=== PATIENT | male | born 2000 | race Caucasian/White ===

== ENCOUNTER → 2020-09-09 | Outpatient (CLI) | payer OTHER ==
--- NOTE | 2020-09-09 12:44 | Diagnostic Imaging Report ---
INDICATION: Left-sided varicose veins. Leg pain. TECHNIQUE: Multiple real-time grayscale images were obtained over the left lower extremity in various projections, bilaterally. Additional duplex Doppler and color Doppler images were also obtained. CORRELATION STUDY: None FINDINGS: Color and grayscale sonographic images demonstrate no intraluminal defect within the visualized portion of the common femoral, superficial femoral and/or popliteal veins to suggest thrombus formation. These vessels demonstrate normal response to compression and augmentation. No soft tissue fluid collection. IMPRESSION: 1. Negative for deep venous thrombosis of the left leg. Dictated by: Dictated on workstation # [id number]
== END ==
LOC: RAD 12:00
PROVIDERS: ATTEND Family Medicine
DX: I83.92 Asymptomatic varicose veins of left lower extremity (principal)

== ENCOUNTER 2020-12-15 10:31 | Emergency (ER) | payer OTHER, MEDICAID ==
[~2020-12-15] VITALS: Ht 193 cm; Wt 71.0 kg
--- NOTE | 2020-12-15 10:51 | ED General ---
General Stated Complaint: CP Source of Information: Patient Exam Limitations: No Limitations History of Present Illness Date Seen by Provider: Dec 15, 2020 Time Seen by Provider: 10:48 Initial Comments To ER with left-sided chest pain intermittently for 4 years. No fevers or chills or cough. The pain occurs a few times a day and last for a few minutes before resolving on its own. It seems to come about with movement and go away randomly. No associated shortness of breath or nausea or sweating. No known cardiac disorders. Extensive psychiatric medication list. Timing/Duration: 1-2 Days Severity: Moderate Associated Systoms: Denies Symptoms Allergies and Home Medications Patient Home Medication List Home Medication List Reviewed: Yes Review of Systems Review of Systems Constitutional: see HPI EENTM: see HPI Respiratory: no symptoms reported Cardiovascular: no symptoms reported Genitourinary: no symptoms reported Musculoskeletal: no symptoms reported Skin: no symptoms reported Psychiatric/Neurological: No Symptoms Reported Hematologic/Lymphatic: No Symptoms Reported Immunological/Allergic: no symptoms reported Physical Exam Vital Signs Vital Signs - First Documented 12/15/20 10:51 Temp 36.0 Pulse 47 Resp 18 B/P (MAP) 129/75 (93) Pulse Ox 100 O2 Delivery Room Air Capillary Refill : Height, Weight, BMI Height: '" Weight: lbs. oz. kg; BMI Method: General Appearance: No Apparent Distress, WD/WN Eyes: Bilateral Eye Normal Inspection, Bilateral Eye PERRL, Bilateral Eye EOMI HEENT: PERRL/EOMI, TMs Normal Neck: Full Range of Motion, Normal Inspection Respiratory: No Accessory Muscle Use, No Respiratory Distress Cardiovascular: Regular Rate, Rhythm, Normal Peripheral Pulses Gastrointestinal: Normal Bowel Sounds, Non Tender, Soft Extremity: Normal Capillary Refill, Normal Inspection Neurologic/Psychiatric: Alert, Oriented x3 Skin: Normal Color, Warm/Dry Progress/Results/Core Measures Suspected Sepsis SIRS Temperature: Pulse: Respiratory Rate: Laboratory Tests 12/15/20 11:06: White Blood Count 2.3L Blood Pressure / Mean: Laboratory Tests 12/15/20 11:06: Platelet Count 134 Results/Orders Lab Results Laboratory Tests Test 12/15/20 11:06 Range/Units White Blood Count 2.3 L 4.3-11.0 10^3/uL Red Blood Count 4.85 4.30-5.52 10^6/uL Hemoglobin 14.5 13.3-17.7 g/dL Hematocrit 45 40-54 % Mean Corpuscular Volume 93 80-99 fL Mean Corpuscular Hemoglobin 30 25-34 pg Mean Corpuscular Hemoglobin Concent 32 32-36 g/dL Red Cell Distribution Width 13.0 10.0-14.5 % Platelet Count 134 130-400 10^3/uL Mean Platelet Volume 13.1 H 9.0-12.2 fL Immature Granulocyte % (Auto) 0 % Neutrophils (%) (Auto) 37 L 42-75 % Lymphocytes (%) (Auto) 48 H 12-44 % Monocytes (%) (Auto) 12 0-12 % Eosinophils (%) (Auto) 1 0-10 % Basophils (%) (Auto) 1 0-10 % Neutrophils # (Auto) 0.9 L 1.8-7.8 10^3/uL Lymphocytes # (Auto) 1.1 1.0-4.0 10^3/uL Monocytes # (Auto) 0.3 0.0-1.0 10^3/uL Eosinophils # (Auto) 0.0 0.0-0.3 10^3/uL Basophils # (Auto) 0.0 0.0-0.1 10^3/uL Immature Granulocyte # (Auto) 0.0 0.0-0.1 10^3/uL Percent Immature Platelet Fraction 13.3 H 0.0-7.6 % Sodium Level 140 135-145 MMOL/L Potassium Level 3.7 3.6-5.0 MMOL/L Chloride Level 108 H 98-107 MMOL/L Glucose Level 97 70-105 MG/DL Calcium Level 9.7 8.5-10.1 MG/DL Corrected Calcium 8.5-10.1 MG/DL Total Protein 8.1 6.4-8.2 GM/DL Albumin 4.8 H 3.2-4.5 GM/DL My Orders Orders - IRASEMA QUESADA APRN Cbc With Automated Diff (12/15/20 10:47) Magnesium (12/15/20 10:47) Chest 1 View, Ap/Pa Only (12/15/20 10:47) Ekg Tracing (12/15/20 10:47) Comprehensive Metabolic Panel (12/15/20 10:47) Myoglobin Serum (12/15/20 10:47) Protime With Inr (12/15/20 10:47) Partial Thromboplastin Time (12/15/20 10:47) O2 (12/15/20 10:47) Monitor-Rhythm Ecg Trace Only (12/15/20 10:47) Lipid Panel (12/16/20 06:00) Ed Iv/Invasive Line Start (12/15/20 10:47) Troponin I (12/15/20 10:47) Vital Signs/I&O 12/15/20 10:51 Temp 36.0 Pulse 47 Resp 18 B/P (MAP) 129/75 (93) Pulse Ox 100 O2 Delivery Room Air Capillary Refill : ECG Comment EKG done at 1053 shows sinus rhythm rate of 51 ST elevation consistent with early repolarization normal intervals no ectopy Diagnostic Imaging Diagonstic Imaging: Xray Plain Films/CT/US/NM/MRI: chest Comments clear Reviewed: Reviewed by Me Departure Impression Primary Impression: Musculoskeletal chest pain Disposition: HOME, SELF-CARE Condition: Stable Departure-Patient Inst. 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
[2020-12-15 11:12] LABS: BASOPHILS % (AUTO) 1 % (0-10); MONOCYTES # (AUTO) 0.3 10^3/uL (0.0-1.0)
[2020-12-15 11:14] LABS: EOSINOPHILS % (AUTO) 1 % (0-10); HEMATOCRIT 45 % (40-54); HEMOGLOBIN 14.5 g/dL (13.3-17.7); LYMPHOCYTES # (AUTO) 1.1 10^3/uL (1.0-4.0); LYMPHOCYTES % (AUTO) 48 % (12-44); MEAN CORPUSCULAR HEMOGLOBIN 30 pg (25-34); MEAN CORPUSCULAR HGB CONC 32 g/dL (32-36); MEAN CORPUSCULAR VOLUME 93 fL (80-99); MEAN PLATELET VOLUME 13.1 fL (9.0-12.2); MONOCYTES % (AUTO) 12 % (0-12); NEUTROPHILS # (AUTO) 0.9 10^3/uL (1.8-7.8); NEUTROPHILS % (AUTO) 37 % (42-75); PLATELET COUNT 134 10^3/uL (130-400); WHITE BLOOD COUNT 2.3 10^3/uL (4.3-11.0)
[2020-12-15 11:24] LABS: ALBUMIN 4.8 GM/DL (3.2-4.5); CHLORIDE 108 MMOL/L (98-107); POTASSIUM 3.7 MMOL/L (3.6-5.0); SODIUM 140 MMOL/L (135-145)
[2020-12-15 11:26] LABS: CALCIUM 9.7 MG/DL (8.5-10.1)
[2020-12-15 11:27] LABS: GLUCOSE 97 MG/DL (70-105); PROTHROMBIN TIME PATIENT 13.3 SEC (12.2-14.7); TOTAL PROTEIN 8.1 GM/DL (6.4-8.2)
--- NOTE | 2020-12-15 11:27 | Diagnostic Imaging Report ---
INDICATION: Chest pain COMPARISON: None. FINDINGS: Frontal view of the chest demonstrates clear lungs bilaterally. The heart size is normal. There is no pneumothorax. Osseous structures are normal. IMPRESSION: No acute findings. Normal chest. Dictated by: Dictated on workstation # [id number]
[2020-12-15 11:28] LABS: CARBON DIOXIDE 23 MMOL/L (21-32)
[2020-12-15 11:29] LABS: BILIRUBIN,TOTAL 0.9 MG/DL (0.1-1.0)
[2020-12-15 11:30] LABS: ALKALINE PHOSPHATASE 65 U/L (40-136); CREATININE SERUM 0.97 MG/DL (0.60-1.30); GFR ESTIMATED 98
[2020-12-15 11:31] LABS: BUN/CREATININE RATIO 11
[2020-12-15 11:33] LABS: ALANINE AMINOTRANSFERASE 21 U/L (0-55)
--- OUTSIDE RECORDS SUMMARY | 2020-12-15 12:10 | XMS REPORT | Clinical Summary ---
Author Author [facility] Organization [facility] Address Unknown Phone Unavailable Care Team Providers Care Refrigeration Install[place] [address] Vito Joseph MD PCP Source Comments Some departments are not documenting in the electronic medical record. If you d o not see the information that you expected, contact Release of Information in [facility] [employer] Information Management department at [phone] for further assistan ce in locating additional records.[facility] Allergies Comments Active Allergy Reactions Severity Noted Date Ibuprofen ANAPHYLAXIS High 12/17/2019 Medications End Date Status Medication Sig Dispensed Refills Start Date Active amphetamine-dextroampheta 0 mine XR (ADDERALL XR) 25 0 mg capsule Active lithium carbonate 0 (ESKALITH) 300 mg capsule 0 Active mirtazapine (REMERON) 30 0 mg tablet 0 Active guanfacine ER (INTUNIV 0 ER) 4 mg tablet 0 Active ARIPiprazole (ABILIFY) 30 0 mg tablet 0 Active naltrexone (DEPADE) 50 mg 0 tablet 0 Active levothyroxine (SYNTHROID) 0 50 mcg tablet 0 Active acetaminophen (TYLENOL) Take one 100 tablet 0 500 mg tabletIndications: tablet to two 0 pain tablets by mouth every 6 hours as needed for Pain. Max of 4,000 mg of acetaminophen in 24 hours. Indications: pain Active vortioxetine (TRINTELLIX) Take 10 mg by 0 10 mg tablet mouth daily. Active QUEtiapine (SEROQUEL) 50 Take 50 mg by 0 mg tablet mouth twice daily. Active MELATONIN PO Take by 0 mouth. Active amoxicillin-potassium Take one 10 tablet 0 04/25 clavulanate (AUGMENTIN) tablet by 1 875/125 mg tablet mouth every 12 hours. Take with food. Active Problems Not on file Social History Date Tobacco Use Types Packs/Day Years Used Never Smoker Smokeless Tobacco: Never Used Sex Assigned at Date Recorded Not on file Last Filed Vital Signs Reading Time Taken Comments Vital Sign 122/72 05/14/2020 6:25 PM AUDIOVISUAL LIBRARIAN Blood Pressure 77 05/14/2020 6:25 PM AUDIOVISUAL LIBRARIAN Pulse 37.1 C (98.8 F) 05/14/2020 6:25 PM AUDIOVISUAL LIBRARIAN Temperature 16 05/14/2020 6:25 PM AUDIOVISUAL LIBRARIAN Respiratory Rate 99% 05/14/2020 6:25 PM AUDIOVISUAL LIBRARIAN Oxygen Saturation - - Inhaled Oxygen Concentration 73.5 kg (162 lb) 05/14/2020 6:25 PM AUDIOVISUAL LIBRARIAN Weight 198.1 cm (6' 6") 05/14/2020 6:25 PM AUDIOVISUAL LIBRARIAN Height 18.72 05/14/2020 6:25 PM AUDIOVISUAL LIBRARIAN Body Mass Index Plan of Treatment Health Maintenance Due Date Last Done Comments HIV SCREENING 2014 DTAP/TDAP VACCINES (1 - 2017 Tdap) HEPATITIS C SCREENING 2017 PHYSICAL (COMPREHENSIVE) 2017 EXAM HPV VACCINES (2 - Male 03/19/2019 02/19/2019 3-dose series) INFLUENZA VACCINE 01/22/2021 MENINGOCOCCAL VACCINE Aged Out No longer eligib le based on patient's age to (Rosie RAPP) complete this topic Results Not on filefrom Last 3 Months Insurance Type Payer Benefit Subscriber ID Effective Phone Address Plan / Dates Group HMO CIGNA CIGNA NON [id number] 2016-P PPO/EPO resent Medicaid [facility] [place]ICAID [place] [facility] [id number] 2016-P COMMUNITY resent PLAN [place] 66 [phone] 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
--- OUTSIDE RECORDS SUMMARY | 2020-12-15 12:10 | XMS REPORT | Clinical Summary ---
Author Author [facility] Organization [facility] Address Unknown Phone Unavailable Care Team Providers Care Proofer Black And White Name Role Phone Erick Tinajero MD PCP Allergies Comments Active Allergy Reactions Severity Noted Date Unable to take due to taking lithium and causes reactions per patient. Ibuprofen 07/04/2019 Medications End Date Status Medication Sig Dispensed Refills Start Date Active methylPREDNISolone Follow 21 tablet 0 01 (MEDROL DOSEPACK) 4 mg package 9 tablet directions Active ARIPiprazole (ABILIFY) 30 0 MG tablet 0 Active buPROPion (WELLBUTRIN SR) 0 100 mg SR 12 hr tablet 0 Active dextroamphetamine-ampheta 0 mine (ADDERALL XR) 25 MG 0 XR 24 hr capsule Active guanFACINE (INTUNIV) 4 mg 4 mg. 0 ER tablet 0 Active levothyroxine (SYNTHROID, 0 LEVOTHROID) 50 MCG tablet 0 Active lisdexamfetamine 40 mg. 0 (VYVANSE) 40 MG capsule 0 Active lithium 300 mg tablet 300 mg. 0 10/15/19 0 9 Active mirtazapine (REMERON) 30 0 MG tablet 0 Active naltrexone (DEPADE) 50 mg 0 tablet 0 Active Problems Problem Noted Date Mental disability Social History Date Tobacco Use Types Packs/Day Years Used Never Smoker Smokeless Tobacco: Never Used Comments Alcohol Use Standard Drinks/Week Never 0 (1 standard drink = 0.6 o z pure alcohol) Alcohol Habits Answer Date Recorded How often do you have a drink containing alcohol? Never 11/30/2018 How many drinks containing alcohol do you have on No t asked a typical day when you are drinking? How often do you have six or more drinks on one Not asked occasion? Sex Assigned at Date Recorded Not on file Last Filed Vital Signs Reading Time Taken Comments Vital Sign 124/60 11/15/2019 12:09 PM CDT Blood Pressure 68 11/15/2019 12:09 PM CDT Pulse 36.8 C (98.2 F) 11/15/2019 12:09 PM CDT Temperature 18 11/15/2019 12:09 PM CDT Respiratory Rate 96% 11/15/2019 12:09 PM CDT Oxygen Saturation - - Inhaled Oxygen Concentration 71 kg (156 lb 8.4 oz) 11/15/2019 12:09 PM CDT Weight 195.6 cm (6' 5") 11/15/2019 12:09 PM CDT Height 18.56 11/15/2019 12:09 PM CDT Body Mass Index Plan of Treatment Health Maintenance Due Date Last Done Comments Td/Tdap# 1999 HPV Vaccine (1 - Male 2010 2-dose series) COVID-19 Vaccine (1) 2011 Influenza Vaccine (#1) 2021 02/17/2015, 02/26/2004 MCV4 Vaccine Aged Out No longer eligible based on patient's age to complete this topic Pneumococcal Vaccine: Aged Out No longer eligib le based on patient's age to Pediatrics (0 to 5 Years) complete this topic and At-Risk Patients (6 to 64 Years) Results Not on filefrom Last 3 Months Insurance Type Payer Benefit Subscriber ID Effective Phone Address Plan / Dates Group MEDICAID MANAGED CARE [facility] [id number] 2018 -P ([place]) COMMUNITY resent PLAN OF [place] Advance Directives For more information, please contact: [phone] 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
--- OUTSIDE RECORDS SUMMARY | 2020-12-15 12:10 | XMS REPORT | Clinical Summary ---
Author Author [facility] Organization [facility] Address Unknown Phone Unavailable Care Team Providers Care Scientist Engineer Name Role Phone PCP Unavailable Allergies Not on File Medications Not on file Active Problems Not on file Social History Date Tobacco Use Types Packs/Day Years Used Never Assessed Sex Assigned at Date Recorded Not on file Last Filed Vital Signs Not on file Plan of Treatment Health Maintenance Due Date Last Done Comments Varicella Vaccines (1 of 2000 2 - 2-dose childhood series) HPV Vaccines (1 - Male 2010 2-dose series) COVID-19 Vaccine (1) 2011 MenB Vaccine (Bexsero) (1 2015 of 2) Hepatitis C Screening 2017 DTaP,Tdap,and Td Vaccines 2018 (1 - Tdap) MMR Vaccines-Adult 2018 Influenza Vaccine (#1) 2020 Pneumo-Vaccine: 65+Yrs (1 2064 of 1 - PPSV23) HIB Vaccines Aged Out No longer eligible based on patient's age to complete this topic IPV Vaccines Aged Out No longer eligible based on patient's age to complete this topic Meningococcal Vaccine Aged Out No longer eligib le based on patient's age to complete this topic Pneumo-Vaccine: Peds (0-5 Aged Out No longer el igible based on patient's age to Yrs) & At-Risk Patients complete this topic (6-64 Yrs) Rotavirus Vaccines Aged Out No longer eligible based on patient's age to complete this topic Results Not on filefrom Last 3 Months Insurance Type Payer Benefit Subscriber ID Effective Phone Address Plan / Dates Group CIGNA CIGNA PPO [id number] 2016-P [id number] [place], [place] [address] [place] [address] [id number] 2016- [address] [address] Advance Directives For more information, please contact: [phone] 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
[2020-12-15 12:22] VITALS: BP 113/72
== END 2020-12-15 12:21 | disposition home or self-care (01) ==
LOC: EDUNIT# 10:31 → ER 10:32
DX: R07.89 Other chest pain (principal)
CPT/HCPCS: 36415; 71045; 80053; 83735; 83874; 84484; 85025; 85610; 85730; 93005; 93041

== ENCOUNTER 2021-01-18 08:34 | Outpatient (RCR) | payer OTHER, MEDICAID ==
[2021-01-18 09:00] LABS: BASOPHILS # (AUTO) 0.1 10^3/uL (0.0-0.1); BASOPHILS % (AUTO) 1 % (0-10); EOSINOPHILS # (AUTO) 0.1 10^3/uL (0.0-0.3); EOSINOPHILS % (AUTO) 2 % (0-10); HEMATOCRIT 47 % (40-54); HEMOGLOBIN 14.8 g/dL (13.3-17.7); LYMPHOCYTES # (AUTO) 1.8 10^3/uL (1.0-4.0); LYMPHOCYTES % (AUTO) 40 % (12-44); MEAN CORPUSCULAR HEMOGLOBIN 30 pg (25-34); MEAN CORPUSCULAR HGB CONC 32 g/dL (32-36); MEAN CORPUSCULAR VOLUME 94 fL (80-99); MONOCYTES # (AUTO) 0.5 10^3/uL (0.0-1.0); MONOCYTES % (AUTO) 10 % (0-12); NEUTROPHILS % (AUTO) 46 % (42-75); PLATELET COUNT 154 10^3/uL (130-400); WHITE BLOOD COUNT 4.5 10^3/uL (4.3-11.0)
[2021-01-18 09:27] LABS: ALANINE AMINOTRANSFERASE 13 U/L (0-55); ALBUMIN 4.6 GM/DL (3.2-4.5); ALKALINE PHOSPHATASE 63 U/L (40-136); BILIRUBIN,TOTAL 1.1 MG/DL (0.1-1.0); BUN/CREATININE RATIO 14; CALCIUM 10.1 MG/DL (8.5-10.1); CARBON DIOXIDE 26 MMOL/L (21-32); CHLORIDE 106 MMOL/L (98-107); CREATININE SERUM 1.02 MG/DL (0.60-1.30); GFR ESTIMATED 92; GLUCOSE 134 MG/DL (70-105); POTASSIUM 3.9 MMOL/L (3.6-5.0); SODIUM 141 MMOL/L (135-145); TOTAL PROTEIN 7.5 GM/DL (6.4-8.2)
== END 2021-04-18 | disposition home or self-care (01) ==
LOC: ONC 08:34 → EDSTATUS 15:45
PROVIDERS: ATTEND Internal Medicine Hematology & Oncology
DX: D72.819 Decreased white blood cell count, unspecified (principal)
CPT/HCPCS: 80053; 85025; G0463; 99214

== ENCOUNTER 2021-06-19 21:35 | Emergency (ER) | payer OTHER, MEDICAID ==
[~2021-06-19] VITALS: Ht 198.1 cm; Wt 68.0 kg
[2021-06-19 21:40] VITALS: BP 111/71
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
[2021-06-19] MEDS ORDERED: ONDANSETRON 4 MG (ZOFRAN) ORAL DISSOLVE TAB PO ONE (22:45)
== END 2021-06-19 22:51 | disposition home or self-care (01) ==
LOC: EDUNIT# 21:35 → ER 21:37
DX: S06.0X0A Concussion without loss of consciousness, initial encounter (principal); S01.81XA Laceration without foreign body of other part of head, initial encounter; Y04.8XXA Assault by other bodily force, initial encounter
CPT/HCPCS: 70450; 71045

== ENCOUNTER 2021-06-25 11:14 | Emergency (ER) | payer OTHER, MEDICAID ==
[~2021-06-25] VITALS: Ht 190 cm; Wt 77.1 kg
[2021-06-25 11:14] VITALS: BP 129/87
== END 2021-06-25 11:41 | disposition home or self-care (01) ==
LOC: EDUNIT# 11:14 → ER 11:15
DX: Z48.02 Encounter for removal of sutures (principal)

== ENCOUNTER 2022-10-08 11:01 | Emergency (ER) | payer MEDICAID ==
[~2022-10-08] VITALS: Ht 196 cm; Wt 68.8 kg
[2022-10-08 11:08] VITALS: BP 112/72
--- NOTE | 2022-10-08 11:10 | ED Lower Extremity ---
General Stated Complaint: PAIN RIGHT ANKLE Source: patient Exam Limitations: no limitations (ROMERO MUNGUIA APRN) History of Present Illness Date Seen by Provider: Oct 08, 2022 Time Seen by Provider: 11:09 Initial Comments This a well-appearing 22-year-old male to the ER with complaints of right outer ankle pain. States that he has been walking about 25 miles a day while traveling between [place], [place], [place]. He is currently staying in [place] for the next couple weeks. Yesterday while walking outside he rolled his right ankle around 1900. States that he felt and heard a pop sound. Has been having persistent sharp pain in the outer portion of his ankle. He is still able to ambulate however it does cause pain whenever he bears weight. Has taken nothing prior to arrival. He is currently homeless and staying with a friend at this time. Denies numbness, tingling, bruising. Onset: yesterday Method of Injury: twisted Modifying Factors: Improves With Movement (worsens pain ) (ROMERO MUNGUIA APRN) Allergies and Home Medications Allergies Coded Allergies: No Known Drug Allergies (Unverified , 06/19/21) Patient Home Medication List Home Medication List Reviewed: Yes (ROMERO MUNGUIA APRN) Review of Systems Constitutional: no symptoms reported (ROMERO MUNGUIA APRN) Physical Exam Vital Signs Vital Signs - First Documented 10/08/22 11:08 Temp 36.4 Pulse 57 Resp 12 B/P (MAP) 112/72 (85) Pulse Ox 99 O2 Delivery Room Air (JUAN DIEGO YIN MD) Vital Signs Capillary Refill : (ROMERO MUNGUIA APRN) Height, Weight, BMI Height: '" Weight: lbs. oz. kg; 17.00 BMI Method:Actual General Appearance: WD/WN, no apparent distress HEENT: PERRL/EOMI, normal ENT inspection Neck: full range of motion, normal inspection Cardiovascular: regular rate, rhythm, no murmur, other (Dorsalis pedis 2+ and regular. Skin is pink warm and dry on right ankle. ) Respiratory: lungs clear, normal breath sounds, no respiratory distress, no accessory muscle use Hips: bilateral hip non-tender, bilateral hip normal inspection, bilateral hip normal range of motion Legs: bilateral leg non-tender, bilateral leg normal inspection, bilateral leg normal range of motion Ankles: left ankle non-tender; bilateral ankle normal inspection, bilateral ankle normal range of motion, bilateral ankle no evidence of injury; right ankle soft tissue tenderness (lateral malleolus) Feet: bilateral foot non-tender, bilateral foot normal inspection, bilateral foot normal range of motion Neurologic/Tendon: normal sensation, normal motor functions, normal tendon functions Neurologic/Psychiatric: no motor/sensory deficits, alert, normal mood/affect, oriented x 3 Skin: normal color, warm/dry (ROMERO MUNGUIA APRN) Procedures/Interventions Suture Size: 6-0 (ROMERO MUNGUIA APRN) Progress/Results/Core Measures Results/Orders Vital Signs/I&O 10/08/22 11:08 Temp 36.4 Pulse 57 Resp 12 B/P (MAP) 112/72 (85) Pulse Ox 99 O2 Delivery Room Air (JUAN DIEGO YIN MD) Progress Progress Note : Time: 11:51 Progress Note This is a well-appearing 22-year-old male, no swelling, bruising, or erythema to his right ankle or foot. He is still able to bear weight however will have sharp shooting pain in his right lateral malleolus. Nothing taken for pain prior to arrival. We will go ahead and obtain x-ray imaging to evaluate for any acute fractures. Radiographs interpreted by myself, no acute fractures identified at this time. Pending radiology review. Results reviewed with patient, placed in Poncho wrap. Recommended rest, ice, elevation. Try to avoid walking on injured ankle for the next 48 hours. May take Tylenol or Ibuprofen as needed for pain. Provided with new socks today. Discharge plan of care reviewed and he is agreeable to plan. (ROMERO MUNGUIA APRN) Diagnostic Imaging Diagonstic Imaging: Xray Plain Films/CT/US/NM/MRI: ankle Comments 3 VIEW RIGHT ANKLE 1. Negative for acute fractures, pending radiology review. Diagonstic Imaging: Xray Comments ADMIT DATE: 10/08/22/ER Draft Date of Exam:10/08/22 ANKLE, RIGHT, 3 VIEWS INDICATION: Pain, rolled ankle. COMPARISON: None available. TECHNIQUE: Three radiographs of the right ankle dated 10/08/2022. FINDINGS: No acute fracture. No dislocation. The talar dome is unremarkable. The ankle mortise is symmetric. No evidence of tarsal coalition. No suspicious radiopaque foreign body. IMPRESSION: No acute osseous abnormality. Dictated on workstation # [id number] Dict: 10/08/22 1147 Trans: 10/08/22 1202 [id number] Interpreted by: GORDON HEATH MD Electronically signed by: (ROMERO MUNGUIA APRN) Departure Impression Primary Impression: Sprain and strain of ankle Disposition: 01 HOME, SELF-CARE Condition: Improved Departure-Patient Inst. Decision time for Depature: 12:02 (ROMERO MUNGUIA APRN) Referrals: NO,LOCAL PHYSICIAN (PCP/Family) Primary Care Physician Patient Instructions: Ankle sprain Add. Discharge Instructions: Plan: 1. Discharge home. 2. Follow up with Ortho provider of choice next week. 3. Keep affected site elevated above your heart over the next 72 hours to reduce swelling and pain. This is when the most swelling will occur. 4. Keep splings or dressings dry. 5. Wear poncho bandage as directed. Re-wrap at least twice daily. 6. Do no walk on leg splints-use crutches. 7. Wiggle toes or fingers often to prevent swelling. 8. If extremity becomes numb, cold, more painful, blanched or discolored or excessively swollen, contact your physician or return to the ER. 9. May take Tylenol or Ibuprofen as needed for pain per package. 10. Return to ER for any new, concerning, or worsening symptoms. ATTENDING PHYSICIAN NOTE: I was physically present as attending physician in the emergency department during the care of this patient, but I was not directly involved in the decision making or delivery of care for this patient. (JUAN DIEGO YIN MD) ROMERO MUNGUIA APRN Oct 08, 2022 11:10 JUAN DIEGO YIN MD Oct 08, 2022 19:01
--- NOTE | 2022-10-08 12:04 | Diagnostic Imaging Report ---
INDICATION: Pain, rolled ankle. COMPARISON: None available. TECHNIQUE: Three radiographs of the right ankle dated 10/08/2022. FINDINGS: No acute fracture. No dislocation. The talar dome is unremarkable. The ankle mortise is symmetric. No evidence of tarsal coalition. No suspicious radiopaque foreign body. IMPRESSION: No acute osseous abnormality. Dictated by: Dictated on workstation # [id number]
== END 2022-10-08 12:12 | disposition home or self-care (01) ==
LOC: EDUNIT# 11:01 → ER 11:06
DX: S93.401A Sprain of unspecified ligament of right ankle, initial encounter (principal); S96.911A Strain of unspecified muscle and tendon at ankle and foot level, right foot, initial encounter; X50.1XXA Overexertion from prolonged static or awkward postures, initial encounter; Y93.01 Activity, walking, marching and hiking
CPT/HCPCS: 73610